=== PATIENT | female | born 1960 | race Caucasian/White ===

== ENCOUNTER → 2017-08-18 | Outpatient (CLI) | payer BC ==
[~2017-08-18] MED LIST: ATARAX 25MG25 MG/TAB PO; CELEXA40 MG PO; DIPROLENE CR15GM TP; EFFEXOR-XR150 MG PO; FLEXERIL 1010 MG/TAB PO; HCTZ12.5TAB PO; LASIX 20MG TABL20 MG PO; LEVAQUIN 5500 MG/TA1 PO; LYRICA 150MG C150 MG PO; MOBIC15 MG PO; NEXIUM 40MG40 MG PO; OXAYDO7.5 MG PO; PEPCID 20MG TAB20 MG PO; PREDNISONE10 MG PO; PREDNISONE20 MG PO; REMERON SOLTAB15 MG PO; TESSALON PERLE200 MG PO; VALIUM 5MG T5 MG/TAB PO
== END ==
LOC: COL.PUL 09:57
DX: R06.02 Shortness of breath (principal); Z87.891 Personal history of nicotine dependence
CPT/HCPCS: J7674

== ENCOUNTER 2018-08-22 16:49 | Emergency (ER) | payer BC ==
[~2018-08-22] VITALS: Ht 172.7 cm; Wt 96.4 kg
[2018-08-22 16:57] VITALS: TEMP 98.6
[2018-08-22] MEDS ORDERED: NAPROSYN500 MG PO (17:29)
[2018-08-22] MEDS ORDERED: AMBIEN 5MG TABLE5 MG PO (17:30)
[2018-08-22] MEDS ORDERED: IMITREX50 MG PO (17:30)
[2018-08-22] MEDS ORDERED: DEXILANT60 MG PO (17:31)
[2018-08-22] MEDS ORDERED: ERGOCALCIFER50000 IU PO (17:32)
[2018-08-22 17:33] LABS: BASO # 0.1 (0.0-0.2); EOS # 0.2 (0.0-0.7); GRAN % 76.4 % (42.2-75.2); HEMATOCRIT 40.7 % (37.0-47.0); HEMOGLOBIN 13.7 g/dl (12.5-16.0); LYMPH # 1.5 (1.2-3.4); LYMPH % 14.3 % (20.0-51.0); MEAN CELL VOLUME 85 fl (80.0-100.0); MEAN CORPUSCULAR HEMOGLOBIN 29 pg (27.0-31.0); MEAN CORPUSCULAR HGB CONC 34 g/dl (33.0-37.0); MEAN PLATELET VOLUME 10.3 fl (7.4-10.4); MONO # 0.6 (0.1-0.6); MONO % 5.5 % (1.7-9.3); PLATELET COUNT 390 K/mm3 (130-400); RED BLOOD COUNT 4.79 M/mm3 (4.10-5.30); REDCELL DISTRIBUTION WIDTH-CV 13.2 % (11.5-14.5)
[2018-08-22] MEDS ORDERED: ROXICODONE15 MG PO (17:33)
[2018-08-22] MEDS ORDERED: TESSALON PERLE200 MG PO (17:40)
[2018-08-22 17:45] LABS: ALBUMIN 4.1 gm/dL (3.5-5.0); BILIRUBIN,TOTAL 0.3 mg/dL (0.0-1.0); C-REACTIVE PROTEIN 2.7 mg/dL (0.0-0.9); CALCIUM 10.1 mg/dL (8.4-10.2); CREATININE, serum 0.78 mg/dL (0.52-1.25); POTASSIUM 4.2 mmol/L (3.4-5.0); TOTAL PROTEIN 7.7 gm/dL (6.4-8.2)
[2018-08-22] MEDS ORDERED: RT ADVAIR HFA 2312 G IH (17:45)
[2018-08-22 18:36] LABS: COLLECTION METHOD CLEAN CATCH
[2018-08-22 18:46] LABS: PH 8 (5-8); SQUAMOUS EPITHELIAL None Seen /hpf; URINE APPEARANCE Clear; URINE BACTERIA None Seen /hpf; URINE BILIRUBIN Negative (NEGATIVE); URINE BLOOD Negative (NEGATIVE); URINE COLOR Straw; URINE GLUCOSE Negative (NEGATIVE); URINE KETONE Negative (NEGATIVE); URINE LEUKOCYTE ESTERASE Negative (NEGATIVE); URINE NITRATE Negative (NEGATIVE); URINE PROTEIN(semi-quant) Negative (NEGATIVE); URINE RBC None Seen /hpf; URINE UROBILINOGEN Negative (NEGATIVE)
[2018-08-22] MEDS ORDERED: LEVAQUIN 750MG750 M1 PO (20:14)
[2018-08-22] MEDS ORDERED: ZOFRAN ODT4 MG PO (20:14)
[2018-08-22 20:44] VITALS: BP 141/73; PULSE 58
== END 2018-08-22 20:45 | disposition home or self-care (01) ==
LOC: COL.ER 16:49
PROVIDERS: Emergency Medicine
DX: J01.90 Acute sinusitis, unspecified (principal); J03.90 Acute tonsillitis, unspecified; R19.7 Diarrhea, unspecified; Z79.51 Long term (current) use of inhaled steroids
CPT/HCPCS: J1885; J2405; J7030

== ENCOUNTER → 2021-02-05 | Outpatient (CLI) | payer BC ==
[~2021-02-05] MED LIST changes: +AMBIEN 5MG TABLE5 MG PO; +DEXILANT60 MG PO; +ERGOCALCIFER50000 IU PO; +IMITREX50 MG PO; +LEVAQUIN 750MG750 M1 PO; +NAPROSYN500 MG PO; +ROXICODONE15 MG PO; +RT ADVAIR HFA 2312 G IH; +ZOFRAN ODT4 MG PO
== END ==
LOC: COL.RAD 14:33
DX: Z18.89 Other specified retained foreign body fragments (principal); K59.00 Constipation, unspecified

== ENCOUNTER → 2021-02-10 | Outpatient (CLI) | payer BC | LOC: COL.RAD 14:27 | DX: K59.00 Constipation, unspecified (principal) ==

== ENCOUNTER → 2023-01-25 | Outpatient (CLI) | payer BC | LOC: MC.RAD 12:46 | DX: Z12.31 Encounter for screening mammogram for malignant neoplasm of breast (principal) ==